=== PATIENT | male | born 1995 | race African-American/Black ===

== ENCOUNTER 2021-06-20 12:44 | Emergency (ER) | payer MEDICAID ==
[~2021-06-20] VITALS: Ht 165.1 cm; Wt 100.0 kg
[2021-06-20] MEDS ORDERED: TETANUS, DIPHTHERIA, PERTUSSIS VAC/PF 0.5ML (>10YR OLD) IM ONE (13:00)
[2021-06-20] MEDS ORDERED: KETOROLAC 15MG/ML VIAL IV ONE (13:30)
[2021-06-20] MEDS ORDERED: CEFAZOLIN 1000MG PREMIX 50 ML IV ONE (15:00)
[2021-06-20] MEDS ORDERED: ONDANSETRON HCL 4MG/2ML INJ IV STA (16:39)
[2021-06-20] MEDS ORDERED: MORPHINE SULFATE 4 MG/ML CPJ (NOT FOR IM USE) IV STA (16:39)
[2021-06-20] MEDS ORDERED: SODIUM CHLORIDE 0.9% 1,000 ML IV ONE (16:45)
[2021-06-20 18:00] VITALS: BP 145/72
== END 2021-06-20 18:15 | disposition short-term general hospital (02) ==
LOC: ER 13:10
DX: S52.352B Displaced comminuted fracture of shaft of radius, left arm, initial encounter for open fracture type I or II (principal); S60.811A Abrasion of right wrist, initial encounter; Z20.822 Contact with and (suspected) exposure to COVID-19; X93.XXXA Assault by handgun discharge, initial encounter; Y93.89 Activity, other specified; Y92.488 Other paved roadways as the place of occurrence of the external cause
CPT/HCPCS: 73090; 87426; 90471; 90715; 96361; 96365; 96375; 99284; C9803; J0690; J1885; J2270; J2405; J7030; U0003; U0005